=== PATIENT | female | born 1965 | race Caucasian/White ===

== ENCOUNTER → 2017-10-25 | Outpatient (CLI) | payer BC | LOC: M.RAD 14:43 | DX: Z12.31 Encounter for screening mammogram for malignant neoplasm of breast (principal) ==

== ENCOUNTER → 2019-12-14 | Outpatient (CLI) | payer BC | LOC: M.ULTRA 15:49 | DX: E04.2 Nontoxic multinodular goiter (principal); E83.52 Hypercalcemia ==

== ENCOUNTER → 2020-06-14 | Outpatient (CLI) | payer BC | LOC: M.ULTRA 08:00 | PROVIDERS: ATTEND Registered Nurse Diabetes Educator | DX: R74.01 Elevation of levels of liver transaminase levels (principal) ==

== ENCOUNTER → 2020-11-25 | Outpatient (CLI) | payer BC | LOC: M.RAD 14:15 | PROVIDERS: ATTEND Registered Nurse Diabetes Educator | DX: Z12.31 Encounter for screening mammogram for malignant neoplasm of breast (principal) ==

== ENCOUNTER → 2020-12-08 | Outpatient (CLI) | payer BC | LOC: M.RAD 10:34 | PROVIDERS: ATTEND Registered Nurse Diabetes Educator | DX: R92.1 Mammographic calcification found on diagnostic imaging of breast (principal) ==